=== PATIENT | male | born 1980 | race Caucasian/White ===

== ENCOUNTER 2016-06-18 18:31 | Emergency (ER) | payer MEDICAID ==
[2016-06-18 18:55] VITALS: BP 145/93
[2016-06-18] MEDS ORDERED: Albuterol/Ipratropium NEB.SOL* Albuterol 2.5 MG/Ipratropium 0.5 MG 3 ML INH ONE (20:19)
--- NOTE | 2016-06-18 20:19 | UC ---
Respiratory Complaint HPI - HPI Summary HPI Summary: cough and congestion with thick green sputum, - History of Current Complaint Chief Complaint: UCRespiratory Stated Complaint: cough, FEVER, AND CONGESTION Hx Obtained From: Patient Onset/Duration: Gradual Onset, Lasting Days - 7, Worse Since - getting worse daily Timing: Constant Severity Initially: Mild Severity Currently: Moderate Pain Intensity: 10 Pain Scale Used: 0-10 Numeric Character: Cough: Productive - thick green sputum Aggravating Factors: Nothing Alleviating Factors: Nothing Associated Signs And Symptoms: Positive: Pleuritic Chest Pain, Wheezing, URI - Allergies/Home Medications Allergies/Adverse Reactions: Allergies Allergy/AdvReac Type Severity Reaction Status Date / Time No Known Allergies Allergy Verified 06/18/16 18:55 Home Medications: Home Medications [id number] [Theraflu Cold & Cough 10-20-20 mg] 1 06/18/16 [ History] PMH/Surg Hx/FS Hx/Imm Hx Previously Healthy: Yes Cardiovascular History Of: Denies: Cardiac Disorders - Surgical History Surgical History: None - Family History Known Family History: Positive: Cardiac Disease, Hypertension - Social History Occupation: Disabled Lives: With Family Alcohol Use: Weekly Substance Use Type: Marijuana Substance Use Comment - Amount & Last Used: 06/25/14 Smoking Status (MU): Current Every Day Smoker Type: Cigarettes Amount Used/How Often: 1 PPD Length of Time of Smoking/Using Tobacco: 19 YRS Have You Smoked in the Last Year: Yes Cessation Counseling: Counseled 3+Min - 10 Min Review of Systems Constitutional: Chills Skin: Negative Eyes: Negative ENT: Negative Respiratory: Cough Cardiovascular: Chest Pain - pleurtic Gastrointestinal: Negative Genitourinary: Negative Motor: Negative Neurovascular: Negative Musculoskeletal: Negative Neurological: Negative Psychological: Negative All Other Systems Reviewed And Are Negative: Yes Physical Exam Triage Information Reviewed: Yes Appearance: Well-Appearing, No Pain Distress, Well-Nourished Vital Signs: Initial Vital Signs Temp 98.6 F 06/18/16 18:51 Pulse 92 06/18/16 18:51 Resp 22 06/18/16 18:51 BP 145/93 06/18/16 18:51 Pulse Ox 100 06/18/16 18:51 Vital Signs Reviewed: Yes Eye Exam: Normal Eyes: Positive: Conjunctiva Clear ENT Exam: Normal ENT: Positive: Normal ENT inspection, Hearing grossly normal, Pharynx normal, Nasal congestion, Nasal drainage, TMs normal. Negative: Tonsillar swelling, Tonsillar exudate, Trismus, Muffled/hoarse voice Neck exam: Normal Neck: Positive: Supple, Nontender, No Lymphadenopathy Respiratory Exam: Normal Respiratory: Positive: Chest non-tender, Lungs clear, Normal breath sounds, No respiratory distress, No accessory muscle use Cardiovascular Exam: Normal Cardiovascular: Positive: RRR, No Murmur, Pulses Normal, Brisk Capillary Refill Musculoskeletal Exam: Normal Musculoskeletal: Positive: Strength Intact, ROM Intact, No Edema Neurological Exam: Normal Neurological: Positive: Alert, Muscle Tone Normal Psychological Exam: Normal Psychological: Positive: Normal Response To Family Skin Exam: Normal UC Diagnostic Evaluation - Laboratory O2 Sat by Pulse Oximetry: 100 Diagnostic Studies Comment: Influenza A/B (-) Respiratory Course/Dx - Course Course Of Treatment: albuterol, zithromax, increase fluids, smoking cesation information follow with pcp - Differential Dx/Diagnosis Differential Diagnosis/HQI/PQRI: Aspiration, Bronchitis, Influenza, Lower Resp Infection Provider Diagnoses: Bronchitis, Nicotine Dependant Discharge - Discharge Plan Condition: Stable Disposition: HOME Prescriptions: Albuterol HFA INHALER* [Ventolin HFA Inhaler*] 2 puff INH Q4H PRN #1 mdi PRN Reason: cough/congestion Azithromycin TAB* [Zithromax TAB (Z-HUGO) 250 mg #6 tabs] 250 mg PO DAILY #4 tab Patient Education Materials: How to Stop Smoking (ED), Cigarette Smoking and Your Health (GEN), How to Use a Metered-Dose Inhaler (ED), Acute Bronchitis (ED) , Secondhand Smoke Exposure in Children (ED) Referrals: [facility] [Outside] - If Needed No Primary Care Phys,NOPCP [Primary Care Provider] -
[2016-06-18] MEDS ORDERED: Azithromycin TAB* 250 MG PO ONE (20:43)
== END 2016-06-18 21:04 | disposition home or self-care (01) ==
LOC: UCEAST 18:31
DX: J40 Bronchitis, not specified as acute or chronic (principal); F17.210 Nicotine dependence, cigarettes, uncomplicated
CPT/HCPCS: 87502; 99212; A9270-GY; G0463

== ENCOUNTER 2016-09-07 11:58 | Emergency (ER) | payer MEDICARE, MEDICAID ==
[2016-09-07 12:15] VITALS: BP 142/83
--- NOTE | 2016-09-07 12:43 | UC ---
Knee Pain HPI - HPI Summary HPI Summary: 35 yo male with a 2 weeks hx of progressively worsening right knee pain and swelling no f/c no recent injury remote hx patellar dislocation and a few years ago fractured patella - History of Current Complaint Chief Complaint: UCLowerExtremity Stated Complaint: RIGHT KNEE PAIN Time Seen by Provider: 09/07/16 12:23 Onset/Duration: Gradual Onset, Lasting Weeks Severity Initially: Moderate Severity Currently: Moderate Pain Intensity: 4 Pain Scale Used: 0-10 Numeric Character: Dull, Aching, Throbbing, Spasmodic Aggravating Factor(s): Movement, Weight Bearing Alleviating Factor(s): Rest Associated Signs And Symptoms: Positive: Negative Able to Bear Weight: Yes - Allergies/Home Medications Allergies/Adverse Reactions: Allergies Allergy/AdvReac Type Severity Reaction Status Date / Time No Known Allergies Allergy Verified 09/07/16 12:10 Home Medications: Home Medications NK [No Home Medications Reported] 09/07/16 [History Confirmed 09/07/16] PMH/Surg Hx/FS Hx/Imm Hx Previously Healthy: Yes Cardiovascular History Of: Denies: Cardiac Disorders - Surgical History Surgical History: None - Family History Known Family History: Positive: Cardiac Disease, Hypertension - Social History Alcohol Use: Occasionally Substance Use Type: Marijuana Substance Use Comment - Amount & Last Used: last used yesterday Smoking Status (MU): Heavy Every Day Tobacco Smoker Type: Cigarettes Amount Used/How Often: 1 PPD Length of Time of Smoking/Using Tobacco: 19 YRS Have You Smoked in the Last Year: Yes Review of Systems Constitutional: Negative Skin: Negative Eyes: Negative ENT: Negative Respiratory: Negative Cardiovascular: Negative Gastrointestinal: Negative Genitourinary: Negative Motor: Negative Neurovascular: Negative Musculoskeletal: Arthralgia Neurological: Negative Psychological: Negative All Other Systems Reviewed And Are Negative: Yes Physical Exam Triage Information Reviewed: Yes Appearance: Well-Appearing, No Pain Distress, Well-Nourished Vital Signs: Initial Vital Signs Temp 98.7 F 09/07/16 12:11 Pulse 95 09/07/16 12:11 Resp 16 09/07/16 12:11 BP 142/83 09/07/16 12:11 Pulse Ox 98 09/07/16 12:11 Vital Signs Reviewed: Yes Eyes: Positive: Conjunctiva Clear ENT: Positive: Hearing grossly normal. Negative: Nasal congestion, Nasal drainage, Trismus, Muffled/hoarse voice Neck: Positive: Supple, Nontender, No Lymphadenopathy Respiratory: Positive: Lungs clear, Normal breath sounds, No respiratory distress, No accessory muscle use, Respiratory distress Cardiovascular: Positive: RRR, No Murmur Musculoskeletal: Positive: Other: - antalgic gait/small effusion/stable joint/ tender medial/lateral joint line Neurological: Positive: Alert, Muscle Tone Normal Psychological Exam: Normal Skin Exam: Normal Knee Pain Course/Dx - Differential Dx/Diagnosis Provider Diagnoses: right knee pain. suspect menical tear Discharge - Discharge Plan Condition: Stable Disposition: HOME Patient Education Materials: Knee Pain (ED) Forms: *Work Release Referrals: Lionel Casiano MD [Medical Doctor] - As Soon As Possible Additional Instructions: rest elevate ice twice daily knee immobilizer when up
--- NOTE | 2016-09-07 13:13 | RAD ---
INDICATION: Right knee pain. TECHNIQUE: 4 views of the right knee were obtained. FINDINGS: The bones are in normal alignment. No joint effusion or fracture is seen. Joint spaces appear maintained. IMPRESSION: NO EVIDENCE FOR FRACTURE.
== END 2016-09-07 14:01 | disposition home or self-care (01) ==
LOC: UCCORT 11:58
DX: M25.561 Pain in right knee (principal); F17.210 Nicotine dependence, cigarettes, uncomplicated
CPT/HCPCS: 99213; G0463

== ENCOUNTER 2017-06-16 12:33 | Emergency (ER) | payer MEDICAID ==
[2017-06-16 15:02] VITALS: BP 152/99
[2017-06-16] MEDS ORDERED: Ibuprofen TAB* 600 MG PO ONE (15:22)
--- NOTE | 2017-06-16 15:28 | UC ---
Throat Pain/Nasal Eliot HPI - HPI Summary HPI Summary: patient has flu s/s for the past 2 days. increased chest congestion and productiv cough, patient is a smoker - History of Current Complaint Chief Complaint: UCRespiratory Stated Complaint: FLU SYMPTOMS Time Seen by Provider: 06/16/17 15:16 Hx Obtained From: Patient Onset/Duration: Sudden Onset, Lasting Days Severity: Severe Pain Intensity: 10 Associated Signs & Symptoms: Positive: Dysphagia, Wheezing, Sinus Discomfort, Nasal Discharge, Fever - Allergies/Home Medications Allergies/Adverse Reactions: Allergies Allergy/AdvReac Type Severity Reaction Status Date / Time No Known Allergies Allergy Verified 06/16/17 14:57 PMH/Surg Hx/FS Hx/Imm Hx Previously Healthy: Yes - Surgical History Surgical History: None - Family History Known Family History: Positive: Cardiac Disease, Hypertension - Social History Alcohol Use: Weekly Substance Use Type: Marijuana Substance Use Comment - Amount & Last Used: few days ago Smoking Status (MU): Heavy Every Day Tobacco Smoker Type: Cigarettes Amount Used/How Often: 1 PPD Length of Time of Smoking/Using Tobacco: 19 YRS Have You Smoked in the Last Year: Yes Review of Systems Constitutional: Fever, Chills, Fatigue Skin: Negative Eyes: Negative ENT: Sore Throat, Ear Ache, Nasal Discharge Respiratory: Shortness Of Breath, Cough Cardiovascular: Negative Gastrointestinal: Negative Motor: Negative Neurovascular: Negative Musculoskeletal: Arthralgia, Myalgia Neurological: Headache Psychological: Negative Is Patient Immunocompromised?: No All Other Systems Reviewed And Are Negative: Yes Physical Exam Triage Information Reviewed: Yes Appearance: Well-Nourished, Ill-Appearing, Pain Distress Vital Signs: Initial Vital Signs Temp 100.3 F 06/16/17 14:58 Pulse 106 06/16/17 14:58 BP 152/99 06/16/17 14:58 Pulse Ox 99 06/16/17 14:58 Vital Signs Reviewed: Yes Eye Exam: Normal ENT: Positive: Pharynx normal, TM red, Sinus tenderness Dental Exam: Normal Neck exam: Normal Neck: Positive: Supple, Nontender, No Lymphadenopathy Respiratory Exam: Normal Respiratory: Positive: No respiratory distress, Crackles, Rhonchi, Inspiration Cardiovascular Exam: Normal Cardiovascular: Positive: No Murmur, Pulses Normal, Tachycardia Abdominal Exam: Normal Abdomen Description: Positive: Nontender, No Organomegaly, Soft Bowel Sounds: Positive: Present Musculoskeletal Exam: Normal Musculoskeletal: Positive: Strength Intact, ROM Intact, No Edema Neurological Exam: Normal Neurological: Positive: Alert, Muscle Tone Normal Psychological Exam: Normal Skin Exam: Normal Throat Pain/Nasal Course/Dx - Course Assessment/Plan: hx obtained, exam performed ,meds reviewed, treated for flu and sinusitis - Differential Dx/Diagnosis Differential Diagnosis/HQI/PQRI: Influenza, Laryngitis, Otitis Media, Pharyngitis, Sinusitis, URI Provider Diagnoses: influenza. sinusitis. tobacco abuse Discharge - Discharge Plan Condition: Stable Disposition: HOME Prescriptions: Azithromyxin HUGO (NF) [Z-Hugo (Zithromax) 250 mg tabs #6] 2 tab PO .TODAY, THEN 1 DAILY #6 tab Oseltamivir CAP* [Tamiflu CAP*] 75 mg PO BID #10 cap Patient Education Materials: Influenza (ED) Referrals: No Primary Care Phys,NOPCP [Primary Care Provider] - Additional Instructions: 1. take the medicaiton as prescribed 2. get plenty of rest 3. Increase fluid intake 4. ibuprofen or tylenol ofr pain and fever. 5. warm showers, vicks, and humidifier in room if needed.
== END 2017-06-16 15:52 | disposition home or self-care (01) ==
LOC: UCCORT 12:33
DX: J11.1 Influenza due to unidentified influenza virus with other respiratory manifestations (principal); J32.9 Chronic sinusitis, unspecified; F17.210 Nicotine dependence, cigarettes, uncomplicated
CPT/HCPCS: 99212; A9270-GY; G0463

== ENCOUNTER 2018-04-19 11:05 | Emergency (ER) | payer MEDICAID, MEDICARE ==
[2018-04-19 14:12] VITALS: BP 148/87
--- NOTE | 2018-04-19 14:35 | UC ---
Back Pain HPI - HPI Summary HPI Summary: Pt c/o sudden onset of lower bakc pain. Pt has hx of spontaneous low back pain related to work injury ~ 10 years ago. Pt reports that when the back pain first occurred he was seen in [facility] ER and had "scans , MRI or ct scan". Pt is requesting a "scan" at todays visit. Denies lower extremity weakness, loss of bowel and bladder control or saddle anesthesia . denies weakness. Deneis injury or any related trauma. - History of Current Complaint Chief Complaint: UCBackPain Stated Complaint: LOWER BACK PAIN Time Seen by Provider: 04/19/18 14:04 Hx Obtained From: Patient Onset/Duration: Sudden Onset, Lasting Days, Worse Since - onset Timing: Constant Severity Initially: Moderate Severity Currently: Moderate Pain Intensity: 8 Back Pain: Is Discrete @ - low back Character: Dull, Aching, Throbbing, Stiffness Aggravating Factor(s): Movement, Lifting, Bending Alleviating Factor(s): Position Associated Signs And Symptoms: Positive: Other - pain with ROM - Risk Factors AAA Risk Factors: Negative TAD Risk Factors: Negative Cauda Equina Risk Factors: Negative Epidural Abscess Risk Factors: Negative - Allergies/Home Medications Allergies/Adverse Reactions: Allergies Allergy/AdvReac Type Severity Reaction Status Date / Time No Known Allergies Allergy Verified 06/16/17 14:57 Home Medications: Home Medications Ibuprofen 600 mg PO ONCE 04/19/18 [History Confirmed 04/19/18] PMH/Surg Hx/FS Hx/Imm Hx Previously Healthy: Yes - Surgical History Surgical History: None - Family History Known Family History: Positive: Cardiac Disease, Hypertension - Social History Occupation: Employed Full-time Lives: With Family Alcohol Use: Daily Alcohol Amount: 6-8 BEERS A DAY Substance Use Type: Marijuana Substance Use Comment - Amount & Last Used: DAILY Smoking Status (MU): Heavy Every Day Tobacco Smoker Type: Cigarettes Amount Used/How Often: 1 PPD Length of Time of Smoking/Using Tobacco: 19 YRS Have You Smoked in the Last Year: Yes Review of Systems All Other Systems Reviewed And Are Negative: Yes Constitutional: Positive: Negative Skin: Positive: Negative Eyes: Positive: Negative ENT: Positive: Negative Respiratory: Positive: Negative Cardiovascular: Positive: Negative Gastrointestinal: Positive: Negative Genitourinary: Positive: Negative Motor: Positive: Decreased ROM - pain with low back movement Neurovascular: Positive: Negative Musculoskeletal: Positive: Arthralgia, Myalgia Neurological: Positive: Negative Psychological: Positive: Negative Is Patient Immunocompromised?: No Physical Exam Triage Information Reviewed: Yes Appearance: Well-Appearing Vital Signs: Initial Vital Signs Temp 97.8 F 04/19/18 12:04 Pulse 86 04/19/18 12:04 Resp 16 04/19/18 12:04 BP 158/83 04/19/18 12:04 Pulse Ox 100 04/19/18 12:04 Vital Signs Reviewed: Yes Eye Exam: Normal ENT Exam: Normal Dental Exam: Normal Neck exam: Normal Respiratory Exam: Normal Respiratory: Positive: No respiratory distress Musculoskeletal Exam: Normal Musculoskeletal: Positive: Strength Intact, ROM Intact Neurological Exam: Normal Psychological Exam: Normal Skin Exam: Normal Diagnostics - Radiology No standard instances Radiology Interpretation Completed By: Radiologist - IMPRESSION: #. Negative for fracture or spondylolysis. #. L4-L5 and L5-S1 degenerative spondylosis as described. If clinically indicated consider follow-up MRI for most accurate assessment of disc pathology and degree of acquired stenosis. Back Pain Course/Dx - Differential Dx/Diagnosis Differential Diagnosis/HQI/PQRI: Cauda Equina Syndrome, Herniated Disc, Strain, Sprain Provider Diagnosis: Lumbar back pain with radiculopathy affecting lower extremity Discharge - Sign-Out/Discharge Documenting (check all that apply): Patient Departure All imaging exams completed and their final reports reviewed: No Studies - Discharge Plan Condition: Stable Disposition: HOME Patient Education Materials: Chronic Back Pain (DC), Lower Back Exercises (ED) Referrals: No Primary Care Phys,NOPCP [Primary Care Provider] - Altagracia HAGAN,Javier Samson [Medical Doctor] - As Soon As Possible [facility] [Outside] - If Needed - Billing Disposition and Condition Condition: STABLE Disposition: Home
== END 2018-04-19 14:54 | disposition home or self-care (01) ==
LOC: UCCORT 11:05
DX: M54.16 Radiculopathy, lumbar region (principal); F17.210 Nicotine dependence, cigarettes, uncomplicated
CPT/HCPCS: 72131; 99212; G0463

== ENCOUNTER 2024-03-13 09:58 | Inpatient (IN) ==
[2024-03-13 10:53] LABS: Urine Appearance Clear; Urine Bilirubin Negative (Negative); Urine Blood Negative (Negative); Urine Color Yellow; Urine Glucose Negative (Negative); Urine Ketones 3+ (Negative); Urine Nitrite Negative (Negative); Urine Protein 1+ (>=30 mg/dL) (Negative); Urine Specific Gravity 1.031 (1.002-1.030); Urine Urobilinogen 1+ (Negative); Urine pH 5.5 (5.0-8.0)
[2024-03-13 11:11] LABS: Urine Bacteria Absent /HPF (Absent); Urine Red Blood Cell Trace(0-2/hpf) /HPF (0-Trace); Urine Squamous Epithelial Cell Present /HPF (Absent); Urine White Blood Cell 1+(6-10/hpf) /HPF (0-Trace)
[2024-03-13 11:40] LABS: Urine Benzodiazepine Screen None Detected (None Detect); Urine Buprenorphine Screen None Detected (None Detect); Urine Cannabinoids Screen Presumptive Positive (None Detect); Urine Fentanyl Screen None Detected (None Detect); Urine Hydrocodone Screen None Detected (None Detect); Urine Opiates Screen None Detected (None Detect)
[2024-03-13] MEDS ORDERED: Lorazepam PYXIS KEY PRN (11:47)
[2024-03-13] MEDS ORDERED: Al Hydrox/Mg Hydrox/Simet LIQ 30 ML UDC PO PRN (11:47)
[2024-03-13] MEDS: Haloperidol 5 mg/ml SDV IV/IM 5 MG/ML AMP IM ONE (13:17)
[2024-03-13] MEDS: LORazepam 2 mg VIAL 1 ml IM ONE (13:17)
[2024-03-14] MEDS: Nicotine GUM 4MG FRUIT FLAVOR PO PRN (07:14)
[2024-03-14 08:47] LABS: HDL Cholesterol 46.5 mg/dL
[2024-03-15] MEDS ORDERED: Lisinopril/HCTZ 20/25 TAB (NF) PO SCH (09:00)
[2024-03-15] MEDS: Nicotine Lozenge mini 4 MG LOZNG.MINI MT PRN (12:24)
[2024-03-21] MEDS: RISPERIDONE 250 MG/0.7 ML SUBCUT ONE (11:32)
[2024-03-24 08:34] VITALS: BP 147/80
== END 2024-03-24 14:25 | disposition home or self-care (01) | DRG 885 ==
LOC: ED 09:58 → EDHOLD 11:47 → BSU 12:06
PROVIDERS: ADMIT Psychiatry & Neurology Psychiatry; ATTEND Student in an Organized Health Care Education/Training Program